=== PATIENT | female | born 1995 | race Caucasian/White ===

== ENCOUNTER 2018-08-14 15:52 | Outpatient (CLI) | payer MEDICAID ==
[~2018-08-14] VITALS: Ht 162.6 cm; Wt 65.1 kg
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
[2018-08-14 15:57] VITALS: BP 135/74
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
[2018-08-14] MEDS ORDERED: PREN-37 PO (16:32)
--- NOTE | 2018-08-14 20:00 | NUR ---
CALL TO DR OCHOA WITH UPDATE ON PT CONDITION GIVEN. ORDER RECEIVED THAT CONDITION IS STABLE FOR DISCHARGE HOME.
[2018-08-14 20:10] VITALS: BP 124/85
--- NOTE | 2018-08-14 20:10 | NUR ---
PT D/C TO HOME IN STABLE CONDITION. ACCOMPANIED BY S/O AND PARENTS.
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
== END 2018-08-14 20:10 | disposition home or self-care (01) ==
LOC: WSo 15:52 → LDRP 15:52 → WSo 20:10
PROVIDERS: ATTEND Obstetrics & Gynecology
DX: Z04.1 Encounter for examination and observation following transport accident (principal); Z3A.32 32 weeks gestation of pregnancy
CPT/HCPCS: 99213

== ENCOUNTER → 2018-09-17 | Outpatient (CLI) | payer MEDICAID ==
[~2018-09-17] MED LIST: AMOX500C2 PO; DOCU-143 PO; IBUP-1780 PO; OXYC1TAB87 PO; PREN-37 PO
== END ==
LOC: LABNPT 11:45
PROVIDERS: ATTEND Obstetrics & Gynecology
DX: O14.03 Mild to moderate pre-eclampsia, third trimester (principal)
CPT/HCPCS: 82570; 84156

== ENCOUNTER → 2018-09-18 | Outpatient (CLI) | payer MEDICAID | LOC: LABNPT 09:01 | PROVIDERS: ATTEND Obstetrics & Gynecology | DX: O28.8 Other abnormal findings on antenatal screening of mother (principal) | CPT/HCPCS: 82570; 84156 ==

== ENCOUNTER 2018-09-19 16:18 | Emergency (ER) | payer MEDICAID ==
[~2018-09-19] VITALS: Ht 162.6 cm; Wt 69.9 kg
[~2018-09-19 16:18] MED LIST changes: -AMOX500C2 PO; -DOCU-143 PO; -IBUP-1780 PO; -OXYC1TAB87 PO
[2018-09-19] MEDS ORDERED: LIDOCAINE 1% INJ 20 ML 20 ML VIAL ONE (16:33)
--- NOTE | 2018-09-19 16:35 | ED EENT ---
History of Present Illness General Chief Complaint: Dental Problems/Pain Stated Complaint: R SIDE DENTAL PAIN/37 WKS PREG Source: patient Exam Limitations: no limitations History of Present Illness Date Seen by Provider: Sep 19, 2018 Time Seen by Provider: 16:33 Initial Comments To ER with right lower dental pain for about 3 days. She previously had a filling in the right lower molar, the filling fell out but never bothered her since she ignored it. The pain began 3 days ago. She is 37 weeks . She states that she's been following with Dr. De León daily for "the start of preeclampsia". She is noted to be hypertensive in ER at 154/90 but has no symptoms other than the right-sided dental pain. Timing/Duration: abrupt Severity: moderate Location: dental Associated Symptoms: facial pain/swelling (pain but no swelling) Allergies and Home Medications Allergies Coded Allergies: No Known Drug Allergies (Unverified , 08/14/18) Home Medications Amoxicillin 500 Mg Capsule, 500 MG PO TID Prescribed by: JANNY PIERRE on 09/19/18 1643 Vit/Iron Fumarate/FA 1 Each Tablet, 1 EACH PO DAILY, (Reported) Patient Home Medication List Home Medication List Reviewed: Yes Review of Systems Review of Systems Constitutional: see HPI Eyes: No Symptoms Reported Ears: No Symptoms Reported Nose: no symptoms reported Mouth: see HPI Throat: no symptoms reported Respiratory: no symptoms reported Cardiovascular: no symptoms reported Musculoskeletal: no symptoms reported Past Obsigqi-Fevrdi-Gsommy Hx Patient Social History Recent Foreign Travel: No Contact w/Someone Who Travel: No Immunizations Up To Date Date of Influenza Vaccine: May 13, 2018 Physical Exam Vital Signs Vital Signs - First Documented 09/19/18 16:25 Pulse 94 Resp 18 B/P (MAP) 154/90 (111) Pulse Ox 100 O2 Delivery Room Air Height, Weight, BMI Height: 5'4.00" Weight: 143lbs. 8.0oz. 65.116324lt; 24.6 BMI Method: General Appearance: WD/WN, no apparent distress Eyes: bilateral eye normal inspection, bilateral eye PERRL, bilateral eye EOMI Ears: bilateral ear auricle normal, bilateral ear canal normal, bilateral ear TM normal Mouth/Throat: other (. #32 is fractured, covered with dental wax. No fluctuant abscess to be drained. She would like to have a inferior alveolar nerve block done for the sake of pain control. I'll also prescribe amoxicillin.) Neck: non-tender, full range of motion Respiratory: no respiratory distress, no accessory muscle use Neurologic/Psychiatric: alert, normal mood/affect, oriented x 3 Skin: normal color, warm/dry Procedures/Interventions Progress I did a right inferior alveolar nerve block using 1% lidocaine a total of 1.5 mL (15 mg) on the right. This is lidocaine withOUT epinephrine. Progress/Results/Core Measures Results/Orders My Orders Orders - JANNY PIERRE APRN Lidocaine 1% Inj 20 Ml (Xylocaine 1% Inj (09/19/18 16:33) Vital Signs/I&O 09/19/18 16:25 Pulse 94 Resp 18 B/P (MAP) 154/90 (111) Pulse Ox 100 O2 Delivery Room Air Departure Communication (Admissions) 8700-discussed with Dr. De León, we will send the patient on up to women's services. Impression Primary Impression: Pain, dental Additional Impression: Hypertension affecting in third trimester Disposition: 01 HOME, SELF-CARE Condition: Stable Departure-Patient Inst. Decision time for Depature: 16:35 Referrals: CONOR VEGA MD (PCP/Family) Primary Care Physician Patient Instructions: Dental Pain (DC) Add. Discharge Instructions: Go directly from here up to women's services. All discharge instructions reviewed with patient and/or family. Voiced understanding. Scripts Amoxicillin (Amoxicillin) 500 Mg Capsule 500 MG PO TID, #21 CAP Prov: JANNY PIERRE APRN 09/19/18 Images Mouth/Nose 1 - Caries, Fracture Tooth JANNY PIERRE APRN Sep 19, 2018 16:35
[2018-09-19] MEDS ORDERED: AMOX500C2 PO (16:43)
[2018-09-19 16:56] VITALS: BP 154/90
[2018-09-20] MEDS ORDERED: DOCU-143 PO (13:42)
[2018-09-20] MEDS ORDERED: OXYC1TAB87 PO (13:42)
[2018-09-20] MEDS ORDERED: IBUP-1780 PO (13:42)
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
--- OUTSIDE RECORDS SUMMARY | 2018-09-20 13:51 | XMS REPORT ---
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
== END 2018-09-19 16:56 | disposition home or self-care (01) ==
LOC: EDUNIT# 16:18 → ER 16:19
DX: O26.893 Other specified pregnancy related conditions, third trimester (principal); K08.89 Other specified disorders of teeth and supporting structures; O16.9 Unspecified maternal hypertension, unspecified trimester; Z3A.37 37 weeks gestation of pregnancy
CPT/HCPCS: 99284

== ENCOUNTER 2018-09-19 16:56 | Inpatient (IN) | payer MEDICAID ==
[2018-09-19] VITALS (15 sets, daily range): BP systolic 109–155; BP diastolic 58–89
[~2018-09-19] VITALS: Ht 162.6 cm; Wt 69.9 kg
[~2018-09-19 16:56] MED LIST changes: +AMOX500C2 PO
--- NOTE | 2018-09-19 17:05 | NUR ---
AZUL JOHNSON presented to unit via amb from ED, accompanied by s.o.and parents , with c/o elevated bp in the ED AT 37 WKS 1 DAY GESTATION. AZUL JOHNSON weighed, gowned, voided, and to bed. EFHM and TOCO applied, VS taken. AZUL JOHNSON oriented to bed controls, call light, TV, heat, and A/C controls.
[2018-09-19 17:51] LABS: BASOPHILS % (AUTO) 0 % (0-10); EOSINOPHILS # (AUTO) 0.1 10^3/uL (0.0-0.3); EOSINOPHILS % (AUTO) 0 % (0-10); HEMATOCRIT 33 % (35-52); HEMOGLOBIN 11.7 G/DL (11.5-16.0); LYMPHOCYTES # (AUTO) 1.6 X 10^3 (1.0-4.0); LYMPHOCYTES % (AUTO) 11 % (12-44); MEAN CORPUSCULAR HEMOGLOBIN 32 PG (25-34); MEAN CORPUSCULAR HGB CONC 36 G/DL (32-36); MEAN CORPUSCULAR VOLUME 91 FL (80-99); MEAN PLATELET VOLUME 10.5 FL (7.4-10.4); MONOCYTES # (AUTO) 1.1 X 10^3 (0.0-1.0); MONOCYTES % (AUTO) 7 % (0-12); NEUTROPHILS # (AUTO) 12.4 X 10^3 (1.8-7.8); NEUTROPHILS % (AUTO) 82 % (42-75); PLATELET COUNT 208 10^3/uL (130-400); RED CELL DISTRIBUTION WIDTH 12.9 % (10.0-14.5); WHITE BLOOD COUNT 15.2 10^3/uL (4.3-11.0)
[2018-09-19 18:15] LABS: ALANINE AMINOTRANSFERASE 20 U/L (0-55); ALBUMIN 3.3 GM/DL (3.2-4.5); ALKALINE PHOSPHATASE 225 U/L (40-136); BILIRUBIN,TOTAL 0.2 MG/DL (0.1-1.0); BUN/CREATININE RATIO 17; CALCIUM 9.8 MG/DL (8.5-10.1); CARBON DIOXIDE 20 MMOL/L (21-32); CHLORIDE 106 MMOL/L (98-107); GFR ESTIMATED > 60; GLUCOSE 95 MG/DL (70-105); POTASSIUM 3.9 MMOL/L (3.6-5.0); SODIUM 136 MMOL/L (135-145); TOTAL PROTEIN 6.1 GM/DL (6.4-8.2); URIC ACID 5.5 MG/DL (2.6-7.2)
[2018-09-19 18:30] LABS: NEUTROPHILS % (MANUAL) 82 %
--- NOTE | 2018-09-19 18:30 | NUR ---
DR. OCHOA NOTIFIED OF LAB RESULTS, CTX PATTERN, REACTIVE NST, AND CERVICAL EXAN. ORDER TO CHANGE STATUS TO OBSERVATION AND WILL INDUCE PT IN THE A.M. PLAN OF CARE REVIEWED WITH PT AND S.O. WITH STATED UNDERSTANDING.
[2018-09-19 18:31] LABS: BAND NEUTROPHILS 1 %; EOSINOPHILS % (MANUAL) 1 %; LYMPHOCYTES % (MANUAL) 12 %; MONOCYTES % (MANUAL) 4 %; RBC MORPH NORMAL
--- NOTE | 2018-09-19 18:40 | NUR ---
EFM OFF. TRANSFERRED AMB TO LABOR ROOM 320 ACC BY S.O.
[2018-09-19] MEDS ORDERED: WATER (STERILE) FOR INJECTION 10 ML ONE (19:19)
[2018-09-19] MEDS ORDERED: D5 LR IV SOLUTION 1,000 ML IV ONE (19:20)
[2018-09-19] MEDS ORDERED: ceFAZolin INJECTION 1,000 MG ONE (19:20)
[2018-09-19] MEDS ORDERED: BUTORPHANOL INJ 2 MG/ML (STADOL) VIAL IV ONE (19:45)
[2018-09-19] MEDS ORDERED: oxyCODONE/APAP 5/325MG (PERCOCET 5) TABLET ONE (19:47)
[2018-09-19] MEDS: D5 LR IV SOLUTION 1,000 ML IV SCH (19:51)
[2018-09-19] MEDS: ceFAZolin INJECTION 1,000 MG VIAL IV SCH (19:51)
[2018-09-19] MEDS: oxyCODONE/APAP 5/325MG (PERCOCET 5) TABLET PO PRN ×2 (19:52→21:33)
[2018-09-19] MEDS ORDERED: D5 LR IV SOLUTION 1,000 ML IV SCH (20:32)
--- NOTE | 2018-09-19 20:32 | History & Physical ---
History and Physical Date Seen by Provider: Sep 19, 2018 Time Seen by Provider: 20:25 This patient is a 22-year-old G1 white female with an EDC of 2018 who presented apparently to the emergency department this evening with complaint of toothache. Her blood pressure was elevated. I have been following her in clinic for what appeared to be developing preeclampsia and she does appear to have lost threshold now. Allergies are kindly consult with me on my patient and allow me to admit her to take care of her. She does have elevated white blood cell count likely due to an infected tooth. She also and elevated LDH and an elevated urine protein creatinine ratio. GBS culture has been obtained in my clinic last week and that result is not available. Patient has been started empirically on Ancef for her dental infection and that would cover GBS and in the event. Patient denies rupture membranes or bleeding. She's had no other problems with this . Allergies are none Medications are vitamins Medical social and surgical histories are per the antepartum record HEENT exam is normal Neck is supple no lymphadenopathy no thyromegaly Abdomen is gravid soft nontender nondistended Extremities show no clubbing cyanosis. There is no Homans sign. Pelvic exam is pending. Nurse did report a cervix that was 2 cm dilated 60 percent effaced and 0 station vertex presentation and membranes intact monitor shows normal heart rate pattern with no D cells. There are occasional contractions and notable uterine irritability Laboratory Tests Test 09/19/18 17:15 09/19/18 17:44 Range/Units Urine Protein 16 H 6-12 MG/DL Urine Creatinine 70 30-125 MG/DL Urine Protein/Creatinine Ratio 0.23 White Blood Count 15.2 H 4.3-11.0 10^3/uL Red Blood Count 3.64 L 4.35-5.85 10^6/uL Hemoglobin 11.7 11.5-16.0 G/DL Hematocrit 33 L 35-52 % Mean Corpuscular Volume 91 80-99 FL Mean Corpuscular Hemoglobin 32 25-34 PG Mean Corpuscular Hemoglobin Concent 36 32-36 G/DL Red Cell Distribution Width 12.9 10.0-14.5 % Platelet Count 208 130-400 10^3/uL Mean Platelet Volume 10.5 H 7.4-10.4 FL Neutrophils (%) (Auto) 82 H 42-75 % Lymphocytes (%) (Auto) 11 L 12-44 % Monocytes (%) (Auto) 7 0-12 % Eosinophils (%) (Auto) 0 0-10 % Basophils (%) (Auto) 0 0-10 % Neutrophils # (Auto) 12.4 H 1.8-7.8 X 10^3 Lymphocytes # (Auto) 1.6 1.0-4.0 X 10^3 Monocytes # (Auto) 1.1 H 0.0-1.0 X 10^3 Eosinophils # (Auto) 0.1 0.0-0.3 10^3/uL Basophils # (Auto) 0.0 0.0-0.1 10^3/uL Neutrophils % (Manual) 82 % Lymphocytes % (Manual) 12 % Monocytes % (Manual) 4 % Eosinophils % (Manual) 1 % Band Neutrophils 1 % Blood Morphology Comment NORMAL Sodium Level 136 135-145 MMOL/L Potassium Level 3.9 3.6-5.0 MMOL/L Chloride Level 106 98-107 MMOL/L Carbon Dioxide Level 20 L 21-32 MMOL/L Anion Gap 10 5-14 MMOL/L Blood Urea Nitrogen 10 7-18 MG/DL Creatinine 0.60 0.60-1.30 MG/DL Estimat Glomerular Filtration Rate > 60 BUN/Creatinine Ratio 17 Glucose Level 95 70-105 MG/DL Uric Acid 5.5 2.6-7.2 MG/DL Calcium Level 9.8 8.5-10.1 MG/DL Corrected Calcium 10.4 H 8.5-10.1 MG/DL Total Bilirubin 0.2 0.1-1.0 MG/DL Aspartate Amino Transf (AST/SGOT) 27 5-34 U/L Alanine Aminotransferase (ALT/SGPT) 20 0-55 U/L Alkaline Phosphatase 225 H 40-136 U/L Lactate Dehydrogenase 230 H 125-220 U/L Total Protein 6.1 L 6.4-8.2 GM/DL Albumin 3.3 3.2-4.5 GM/DL White blood cell count is elevated with a left shift. LDH is elevated. Patient 's platelet count is normal. Liver enzymes are normal. Assessment and plan term at 37 weeks gestation admitted with early preeclampsia and with a dental infection / abscess and with leukocytosis. Patient has been started empirically now on Ancef and we will observe through the night and proceed with Pitocin induction in the light of day tomorrow. I anticipate a vaginal delivery but would be prepared if needed. Preeclampsia and dental abscess Allergies and Home Medications Allergies Coded Allergies: No Known Drug Allergies (Unverified , 08/14/18) Home Medications Vit/Iron Fumarate/FA 1 Each Tablet, 1 EACH PO DAILY, (Reported) Patient Home Medication List Home Medication List Reviewed: Yes ONEAL OCHOA MD Sep 19, 2018 20:32
[2018-09-20] VITALS (62 sets, daily range): BP systolic 109–167; BP diastolic 56–96
[2018-09-20] MEDS: oxyCODONE/APAP 5/325MG (PERCOCET 5) TABLET PO PRN ×3 (00:05→08:05)
[2018-09-20] MEDS ORDERED: WATER (STERILE) FOR INJECTION 10 ML ONE ×4 (01:54→19:31)
[2018-09-20] MEDS: ceFAZolin INJECTION 1,000 MG VIAL IV SCH ×4 (02:11→19:50)
[2018-09-20] MEDS: D5 LR IV SOLUTION 1,000 ML IV SCH ×3 (02:26→18:04)
[2018-09-20] MEDS: OXYTOCIN/NORMAL SALINE 500 ML IV SCH (06:05)
[2018-09-20 07:03] LABS: BASOPHILS % (AUTO) 0 % (0-10); EOSINOPHILS # (AUTO) 0.1 10^3/uL (0.0-0.3); EOSINOPHILS % (AUTO) 1 % (0-10); HEMATOCRIT 31 % (35-52); HEMOGLOBIN 10.7 G/DL (11.5-16.0); LYMPHOCYTES % (AUTO) 15 % (12-44); MEAN CORPUSCULAR HEMOGLOBIN 32 PG (25-34); MEAN CORPUSCULAR HGB CONC 34 G/DL (32-36); MEAN CORPUSCULAR VOLUME 93 FL (80-99); MEAN PLATELET VOLUME 10.8 FL (7.4-10.4); MONOCYTES # (AUTO) 1.2 X 10^3 (0.0-1.0); MONOCYTES % (AUTO) 10 % (0-12); NEUTROPHILS # (AUTO) 9.6 X 10^3 (1.8-7.8); NEUTROPHILS % (AUTO) 74 % (42-75); PLATELET COUNT 166 10^3/uL (130-400); WHITE BLOOD COUNT 12.9 10^3/uL (4.3-11.0)
[2018-09-20 07:21] LABS: ALANINE AMINOTRANSFERASE 17 U/L (0-55); ALBUMIN 2.9 GM/DL (3.2-4.5); ALKALINE PHOSPHATASE 199 U/L (40-136); BILIRUBIN,TOTAL 0.3 MG/DL (0.1-1.0); BUN/CREATININE RATIO 13; CALCIUM 8.9 MG/DL (8.5-10.1); CARBON DIOXIDE 23 MMOL/L (21-32); CHLORIDE 107 MMOL/L (98-107); CREATININE SERUM 0.63 MG/DL (0.60-1.30); GFR ESTIMATED > 60; GLUCOSE 87 MG/DL (70-105); POTASSIUM 3.9 MMOL/L (3.6-5.0); SODIUM 137 MMOL/L (135-145); TOTAL PROTEIN 5.3 GM/DL (6.4-8.2)
--- NOTE | 2018-09-20 09:21 | Progress Note-Standard ---
Standard Progress Note Progress Notes/Assess & Plan Date Seen by a Provider: Sep 20, 2018 Time Seen by a Provider: 09:17 Progress/Assessment & Plan This patient is without complaint. Her dental pain is controlled with Percocet. She is feeling occasional contractions. Pitocin is now on 16. She denies rupture membranes or bleeding. Her blood pressures have been labile occasionally touch in the 160s over 90s. heart rate looks good on the monitor. She continues on her Ancef. Vital Signs Date Time Temp Pulse Resp B/P (MAP) Pulse Ox O2 Delivery O2 Flow Rate FiO2 09/20/18 08:45 16 131/77 (95) Room Air 09/20/18 08:30 75 16 142/90 (107) Room Air 09/20/18 08:15 63 16 139/90 (106) Room Air 09/20/18 08:00 74 18 136/87 (103) Room Air 09/20/18 07:45 74 18 136/88 (104) Room Air 09/20/18 07:30 73 18 161/93 (115) Room Air 09/20/18 07:15 97.9 58 18 126/65 (85) Room Air 09/20/18 06:50 98.8 65 18 109/56 (73) Room Air 09/20/18 06:35 61 18 118/63 (81) Room Air 09/20/18 05:55 68 18 128/62 (84) Room Air 09/20/18 05:25 78 18 135/64 (87) Room Air 09/20/18 04:55 77 18 152/89 (110) Room Air 09/20/18 04:25 66 18 139/67 (91) Room Air 09/20/18 03:55 78 18 142/89 (106) Room Air 09/20/18 03:25 60 18 118/67 (84) Room Air 09/20/18 02:55 67 18 134/77 (96) Room Air 09/20/18 02:25 98.8 88 18 133/80 (97) Room Air 09/20/18 01:55 74 18 140/69 (92) Room Air 09/20/18 01:25 66 18 129/60 (83) Room Air 09/20/18 00:55 64 18 141/77 (98) Room Air 09/20/18 00:25 63 18 132/78 (96) Room Air 09/19/18 23:55 97.0 62 18 109/60 (76) Room Air 09/19/18 23:25 66 18 128/73 (91) Room Air 09/19/18 22:55 69 18 125/62 (83) Room Air 09/19/18 22:25 81 18 123/58 (79) Room Air 09/19/18 21:55 86 18 143/87 (105) Room Air 09/19/18 21:25 82 18 138/84 (102) Room Air 09/19/18 20:55 88 18 132/75 (94) Room Air 09/19/18 20:25 75 18 155/89 (111) Room Air 09/19/18 19:55 81 18 139/86 (103) Room Air 09/19/18 19:15 75 18 145/83 (103) Room Air 09/19/18 18:17 75 18 138/78 (98) Room Air 09/19/18 18:02 69 18 136/84 (101) Room Air 09/19/18 17:47 86 18 139/87 (104) Room Air 09/19/18 17:32 81 18 136/87 (103) Room Air 09/19/18 17:17 98.5 75 18 135/88 (104) 98 Room Air Blood pressures noted Laboratory Tests Test 09/19/18 17:15 09/19/18 17:44 09/20/18 06:55 Range/Units Urine Protein 16 H 6-12 MG/DL Urine Creatinine 70 30-125 MG/DL Urine Protein/Creatinine Ratio 0.23 White Blood Count 15.2 H 12.9 H 4.3-11.0 10^3/uL Red Blood Count 3.64 L 3.36 L 4.35-5.85 10^6/uL Hemoglobin 11.7 10.7 L 11.5-16.0 G/DL Hematocrit 33 L 31 L 35-52 % Mean Corpuscular Volume 91 93 80-99 FL Mean Corpuscular Hemoglobin 32 32 25-34 PG Mean Corpuscular Hemoglobin Concent 36 34 32-36 G/DL Red Cell Distribution Width 12.9 13.0 10.0-14.5 % Platelet Count 208 166 130-400 10^3/uL Mean Platelet Volume 10.5 H 10.8 H 7.4-10.4 FL Neutrophils (%) (Auto) 82 H 74 42-75 % Lymphocytes (%) (Auto) 11 L 15 12-44 % Monocytes (%) (Auto) 7 10 0-12 % Eosinophils (%) (Auto) 0 1 0-10 % Basophils (%) (Auto) 0 0 0-10 % Neutrophils # (Auto) 12.4 H 9.6 H 1.8-7.8 X 10^3 Lymphocytes # (Auto) 1.6 2.0 1.0-4.0 X 10^3 Monocytes # (Auto) 1.1 H 1.2 H 0.0-1.0 X 10^3 Eosinophils # (Auto) 0.1 0.1 0.0-0.3 10^3/uL Basophils # (Auto) 0.0 0.0 0.0-0.1 10^3/uL Neutrophils % (Manual) 82 % Lymphocytes % (Manual) 12 % Monocytes % (Manual) 4 % Eosinophils % (Manual) 1 % Band Neutrophils 1 % Blood Morphology Comment NORMAL Sodium Level 136 137 135-145 MMOL/L Potassium Level 3.9 3.9 3.6-5.0 MMOL/L Chloride Level 106 107 98-107 MMOL/L Carbon Dioxide Level 20 L 23 21-32 MMOL/L Anion Gap 10 7 5-14 MMOL/L Blood Urea Nitrogen 10 8 7-18 MG/DL Creatinine 0.60 0.63 0.60-1.30 MG/DL Estimat Glomerular Filtration Rate > 60 > 60 BUN/Creatinine Ratio 17 13 Glucose Level 95 87 70-105 MG/DL Uric Acid 5.5 2.6-7.2 MG/DL Calcium Level 9.8 8.9 8.5-10.1 MG/DL Corrected Calcium 10.4 H 9.8 8.5-10.1 MG/DL Total Bilirubin 0.2 0.3 0.1-1.0 MG/DL Aspartate Amino Transf (AST/SGOT) 27 23 5-34 U/L Alanine Aminotransferase (ALT/SGPT) 20 17 0-55 U/L Alkaline Phosphatase 225 H 199 H 40-136 U/L Lactate Dehydrogenase 230 H 252 H 125-220 U/L Total Protein 6.1 L 5.3 L 6.4-8.2 GM/DL Albumin 3.3 2.9 L 3.2-4.5 GM/DL Patient's hemoglobin is stable her platelet count has dropped notably. LDH is risen just a bit. Liver enzymes are normal. White blood cell count did come down some. The abdomen is benign. Extremities show no clubbing or cyanosis. Pelvic exam shows cervix now 5 cm dilated 60-70 percent effaced -1 station vertex presentation with intact membranes. Amniotomy is performed releasing clear fluid. Assessment and plan hospital day 237 and now 3/7 weeks gestation with preeclampsia that appears to be developing help syndrome. We'll plan to start magnesium if her blood pressures remained persistently elevated. We will effect more prompt delivery if her blood pressures reached the level of 160/110 persistently. If she fails to make adequate progress in labor however proceeding with delivery due to terminate the . We will plan to repeat the lab work this afternoon. ONEAL OCHOA MD Sep 20, 2018 09:21
[2018-09-20] MEDS ORDERED: BUTORPHANOL INJ 2 MG/ML (STADOL) VIAL ONE (10:57)
[2018-09-20] MEDS ORDERED: BUTORPHANOL INJ 2 MG/ML (STADOL) VIAL IV NR (11:00)
[2018-09-20] MEDS ORDERED: SUFENTA 0.6MCG/ML BUPIVA 0.125 100 ML ONE (11:33)
[2018-09-20] MEDS ORDERED: fentaNYL INJECTION 100 MCG/2 ML AMP ONE (11:54)
[2018-09-20] MEDS ORDERED: BUPIVACAINE 0.25% 30 ML (SENSORCAINE) VIAL ONE (11:54)
[2018-09-20] MEDS ORDERED: LACTATED RINGERS 1,000 ML IV ONE (12:20)
[2018-09-20] MEDS ORDERED: CATHETER FLUSH 10 ML SYR IV PRN (12:30)
[2018-09-20] MEDS ORDERED: EPIDURAL (SUFENTA 0.6MCG/ML BUPIVA 0.125%) 100 ML BAG EPI SCH (12:30)
[2018-09-20] MEDS ORDERED: NALOXONE 0.4 MG/ML 1 ML (NARCAN) VIAL IV PRN (12:30)
[2018-09-20] MEDS ORDERED: LIDOCAINE/EPI 2% 1:200,00 (XYLOCAINE) 10 ML VIAL ONE ×2 (13:23→13:36)
[2018-09-20] MEDS ORDERED: OXYTOCIN/NORMAL SALINE 500 ML IV SCH (13:35)
[2018-09-20] MEDS ORDERED: DOCU-143 PO (13:42)
[2018-09-20] MEDS ORDERED: IBUP-1780 PO (13:42)
[2018-09-20] MEDS ORDERED: OXYC1TAB87 PO (13:42)
--- NOTE | 2018-09-20 13:44 | Discharge Instructions ---
Discharge Instructions Discharge Medications New, Converted or Re-Newed RX: RX on Chart Patient Instructions Patient Instructions: As directed Return to The Hospital For: As directed Activity & Diet Discharge Diet: No Restrictions Activity as Tolerated: No Orders-Post D/C & Referrals Follow Up Appt: Call to make follow up appt. for patient in 4 weeks. Follow-up with her dentist when necessary Activity Per routine post vaginal delivery instructions. Please call in RX to patient pharmacy. Continue taking your amoxicillin as prescribed Diet as tolerated Patient may shower or tub bathe as desired. ONEAL OCHOA MD Sep 20, 2018 13:44
[2018-09-20] MEDS ORDERED: MEASLES,MUMPS,RUBELLA 1 EA INJ SC ONE (13:45)
[2018-09-20] MEDS ORDERED: TETANUS,DIPTH,PERTUSS P/F (BOOSTRIX) 0.5 ML VIAL IM ONE (13:45)
[2018-09-20] MEDS ORDERED: BENZOCAINE/MENTHOL (DERMOPLAST) 56 ML CAN TP PRN (13:45)
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
--- NOTE | 2018-09-20 14:21 | NUR ---
Spontaneous vaginal delivery of placenta with cord. fundal massage by dr rivero. IV pitocin increased to 60ml/hr 1423 local to perineum for repair of bilat. periurethral tears 1425 ffu/2 with mod rubra noted 2small clots expressed. pericare and pad under pt. plan of care reviewed with pt. pt assisted out of lithotomy and to sf position. 1436 epidural catheter dc'd with tip intact, bandaid to site 1440 +emesis approx 250ml liquid. 1451 zofran given 1500 ffu/2 with mod rubra noted, no clots expressed. vss 1515 ffu/2 with lt-mod rubra noted, no clots expressed. vss 1530 ffu/2 with mod rubra noted, no clots expressed. vss 1545 ffu/2 with mod rubra noted, no clots expressed vss. family at bedside. fresh ice water to bedside table.
[2018-09-20] MEDS ORDERED: ONDANSETRON 4 MG/2 ML (SDV) Z0FRAN ONE (14:46)
[2018-09-20 14:55] LABS: BASOPHILS % (AUTO) 0 % (0-10); EOSINOPHILS # (AUTO) 0.1 10^3/uL (0.0-0.3); EOSINOPHILS % (AUTO) 0 % (0-10); HEMATOCRIT 39 % (35-52); LYMPHOCYTES # (AUTO) 2.6 X 10^3 (1.0-4.0); LYMPHOCYTES % (AUTO) 16 % (12-44); MEAN CORPUSCULAR HEMOGLOBIN 31 PG (25-34); MEAN CORPUSCULAR HGB CONC 34 G/DL (32-36); MEAN CORPUSCULAR VOLUME 93 FL (80-99); MEAN PLATELET VOLUME 10.6 FL (7.4-10.4); MONOCYTES # (AUTO) 1.3 X 10^3 (0.0-1.0); MONOCYTES % (AUTO) 8 % (0-12); NEUTROPHILS # (AUTO) 11.8 X 10^3 (1.8-7.8); NEUTROPHILS % (AUTO) 75 % (42-75); PLATELET COUNT 213 10^3/uL (130-400); RED CELL DISTRIBUTION WIDTH 12.7 % (10.0-14.5); WHITE BLOOD COUNT 15.8 10^3/uL (4.3-11.0)
[2018-09-20] MEDS: MAGNESIUM SULFATE DRIP 500 ML IV SCH (14:59)
[2018-09-20 15:07] LABS: HEMOGLOBIN 13.2 G/DL (11.5-16.0)
[2018-09-20 15:18] LABS: ALANINE AMINOTRANSFERASE 21 U/L (0-55); ALBUMIN 3.6 GM/DL (3.2-4.5); ALKALINE PHOSPHATASE 251 U/L (40-136); BILIRUBIN,TOTAL 0.3 MG/DL (0.1-1.0); BUN/CREATININE RATIO 9; CALCIUM 9.9 MG/DL (8.5-10.1); CARBON DIOXIDE 20 MMOL/L (21-32); CHLORIDE 107 MMOL/L (98-107); CREATININE SERUM 0.74 MG/DL (0.60-1.30); GFR ESTIMATED > 60; GLUCOSE 91 MG/DL (70-105); POTASSIUM 3.4 MMOL/L (3.6-5.0); SODIUM 143 MMOL/L (135-145); TOTAL PROTEIN 6.9 GM/DL (6.4-8.2)
[2018-09-20] MEDS: KETOROLAC 30 MG/ML VIAL IV SCH ×2 (16:29→22:14)
--- NOTE | 2018-09-20 17:00 | NUR ---
vss. ffu/2 with mod rubra noted.
--- NOTE | 2018-09-20 17:15 | NUR ---
pericare, pad changed and underwear on.
--- NOTE | 2018-09-20 17:30 | NUR ---
Pt transferred via wheelchair to room 309 and then to bed. Oriented to room, call light and surroundings.
[2018-09-20] MEDS: DOCUSATE SODIUM 100 MG (COLACE) CAP PO SCH (19:50)
--- NOTE | 2018-09-20 20:16 | NUR ---
pt resting in bed. assessment completed. family at bedside. pt denies any needs or concerns at this time. scd's placed on bilateral calfs. will continue to monitor.
--- NOTE | 2018-09-20 21:45 | NUR ---
pt assisted to bathroom. pericare completed. pt assisted back to bed. pt denies any needs at this time. will continue to monitor.
[2018-09-20] MEDS ORDERED: CALCIUM GLUC. 10% 4.65 MEQ/10 ML VIAL ONE (22:02)
[2018-09-21] VITALS (11 sets, daily range): BP systolic 106–148; BP diastolic 53–87
[2018-09-21] MEDS: MAGNESIUM SULFATE DRIP 500 ML IV SCH (00:02)
--- NOTE | 2018-09-21 00:38 | OPERATIVE REPORT ---
DATE OF SERVICE: 09/20/2018 DELIVERY NOTE The patient delivered a 37-week viable female with Apgars of 8 and 9 at 1 and 5 minutes respectively, weight of 6 pounds, blood gas is pending and a time was 14:15. The infant was delivered over an intact perineum under epidural analgesia augmented with local in the perineum. The patient did experience bilateral periurethral lacerations. The infant was bulb suctioned on delivery of the head and on completion of delivery. Umbilical cord doubly clamped, the father cut the cord, the baby was passed to mom's abdomen. Placenta delivered spontaneously Sharma. It was normal with a 3-vessel cord. Cord bloods were obtained. Cervix rectum, vagina were examined and found intact, except for the bilateral periurethral lacerations, which was repaired under local analgesia with a single suture of 3-0 Vicryl Rapide in the usual manner. Good hemostasis was achieved. Good reapproximation was achieved. Again, the perineum was intact. Blood loss for the delivery and the repair was around 200 mL. The patient tolerated the procedure well and recovered in the LDR. The baby remained with the mom. Sponge and needle counts were correct. Job ID: [id number] DocumentID: [id number] Dictated Date: 09/20/2018 14:36:44 Chipper Machine Operator Date: 09/21/2018 00:37:26 Dictated By: ONEAL OCHOA MD
[2018-09-21] MEDS ORDERED: WATER (STERILE) FOR INJECTION 10 ML ONE ×2 (01:35→07:56)
[2018-09-21] MEDS: ceFAZolin INJECTION 1,000 MG VIAL IV SCH ×3 (01:49→12:02)
[2018-09-21] MEDS: oxyCODONE/APAP 5/325MG (PERCOCET 5) TABLET PO PRN (02:47)
[2018-09-21] MEDS: KETOROLAC 30 MG/ML VIAL IV SCH ×2 (05:03→11:59)
--- NOTE | 2018-09-21 06:15 | NUR ---
jeff hutchinson'ale, pt ambulated to bathroom. pericare completed. pad changed. pt assisted back to bed.
[2018-09-21 06:25] LABS: BASOPHILS % (AUTO) 0 % (0-10); EOSINOPHILS # (AUTO) 0.2 10^3/uL (0.0-0.3); EOSINOPHILS % (AUTO) 1 % (0-10); HEMATOCRIT 31 % (35-52); HEMOGLOBIN 10.3 G/DL (11.5-16.0); LYMPHOCYTES # (AUTO) 2.6 X 10^3 (1.0-4.0); LYMPHOCYTES % (AUTO) 20 % (12-44); MEAN CORPUSCULAR HEMOGLOBIN 31 PG (25-34); MEAN CORPUSCULAR HGB CONC 34 G/DL (32-36); MEAN CORPUSCULAR VOLUME 94 FL (80-99); MEAN PLATELET VOLUME 10.7 FL (7.4-10.4); MONOCYTES # (AUTO) 1.2 X 10^3 (0.0-1.0); MONOCYTES % (AUTO) 9 % (0-12); NEUTROPHILS # (AUTO) 9.1 X 10^3 (1.8-7.8); NEUTROPHILS % (AUTO) 70 % (42-75); PLATELET COUNT 192 10^3/uL (130-400); RED CELL DISTRIBUTION WIDTH 12.7 % (10.0-14.5)
[2018-09-21 06:47] LABS: ALANINE AMINOTRANSFERASE 13 U/L (0-55); ALBUMIN 2.6 GM/DL (3.2-4.5); ALKALINE PHOSPHATASE 185 U/L (40-136); BILIRUBIN,TOTAL 0.2 MG/DL (0.1-1.0); BUN/CREATININE RATIO 8; CALCIUM 7.3 MG/DL (8.5-10.1); CARBON DIOXIDE 23 MMOL/L (21-32); CHLORIDE 107 MMOL/L (98-107); GFR ESTIMATED > 60; GLUCOSE 87 MG/DL (70-105); POTASSIUM 3.7 MMOL/L (3.6-5.0); SODIUM 137 MMOL/L (135-145); TOTAL PROTEIN 4.8 GM/DL (6.4-8.2)
--- NOTE | 2018-09-21 06:50 | NUR ---
called to unit. update given. order to d'c mag received.
[2018-09-21] MEDS: OXYTOCIN/NORMAL SALINE 500 ML IV SCH (07:32)
--- NOTE | 2018-09-21 07:46 | NUR ---
Dr. De León here to see patient.
[2018-09-21] MEDS ORDERED: TETANUS,DIPTH,PERTUSS P/F (BOOSTRIX) 0.5 ML VIAL IM ONE (07:50)
--- NOTE | 2018-09-21 07:54 | Progress Note-Standard ---
Standard Progress Note Progress Notes/Assess & Plan Date Seen by a Provider: Sep 21, 2018 Time Seen by a Provider: 07:51 Progress/Assessment & Plan This patient is without complaint. Her dental pain is controlled with Percocet. She is feeling occasional contractions. Pitocin is now on 16. She denies rupture membranes or bleeding. Her blood pressures have been labile occasionally touch in the 160s over 90s. heart rate looks good on the monitor. She continues on her Ancef. Vital Signs Date Time Temp Pulse Resp B/P (MAP) Pulse Ox O2 Delivery O2 Flow Rate FiO2 09/20/18 08:45 16 131/77 (95) Room Air 09/20/18 08:30 75 16 142/90 (107) Room Air 09/20/18 08:15 63 16 139/90 (106) Room Air 09/20/18 08:00 74 18 136/87 (103) Room Air 09/20/18 07:45 74 18 136/88 (104) Room Air 09/20/18 07:30 73 18 161/93 (115) Room Air 09/20/18 07:15 97.9 58 18 126/65 (85) Room Air 09/20/18 06:50 98.8 65 18 109/56 (73) Room Air 09/20/18 06:35 61 18 118/63 (81) Room Air 09/20/18 05:55 68 18 128/62 (84) Room Air 09/20/18 05:25 78 18 135/64 (87) Room Air 09/20/18 04:55 77 18 152/89 (110) Room Air 09/20/18 04:25 66 18 139/67 (91) Room Air 09/20/18 03:55 78 18 142/89 (106) Room Air 09/20/18 03:25 60 18 118/67 (84) Room Air 09/20/18 02:55 67 18 134/77 (96) Room Air 09/20/18 02:25 98.8 88 18 133/80 (97) Room Air 09/20/18 01:55 74 18 140/69 (92) Room Air 09/20/18 01:25 66 18 129/60 (83) Room Air 09/20/18 00:55 64 18 141/77 (98) Room Air 09/20/18 00:25 63 18 132/78 (96) Room Air 09/19/18 23:55 97.0 62 18 109/60 (76) Room Air 09/19/18 23:25 66 18 128/73 (91) Room Air 09/19/18 22:55 69 18 125/62 (83) Room Air 09/19/18 22:25 81 18 123/58 (79) Room Air 09/19/18 21:55 86 18 143/87 (105) Room Air 09/19/18 21:25 82 18 138/84 (102) Room Air 09/19/18 20:55 88 18 132/75 (94) Room Air 09/19/18 20:25 75 18 155/89 (111) Room Air 09/19/18 19:55 81 18 139/86 (103) Room Air 09/19/18 19:15 75 18 145/83 (103) Room Air 09/19/18 18:17 75 18 138/78 (98) Room Air 09/19/18 18:02 69 18 136/84 (101) Room Air 09/19/18 17:47 86 18 139/87 (104) Room Air 09/19/18 17:32 81 18 136/87 (103) Room Air 09/19/18 17:17 98.5 75 18 135/88 (104) 98 Room Air Blood pressures noted Laboratory Tests Test 09/19/18 17:15 09/19/18 17:44 09/20/18 06:55 Range/Units Urine Protein 16 H 6-12 MG/DL Urine Creatinine 70 30-125 MG/DL Urine Protein/Creatinine Ratio 0.23 White Blood Count 15.2 H 12.9 H 4.3-11.0 10^3/uL Red Blood Count 3.64 L 3.36 L 4.35-5.85 10^6/uL Hemoglobin 11.7 10.7 L 11.5-16.0 G/DL Hematocrit 33 L 31 L 35-52 % Mean Corpuscular Volume 91 93 80-99 FL Mean Corpuscular Hemoglobin 32 32 25-34 PG Mean Corpuscular Hemoglobin Concent 36 34 32-36 G/DL Red Cell Distribution Width 12.9 13.0 10.0-14.5 % Platelet Count 208 166 130-400 10^3/uL Mean Platelet Volume 10.5 H 10.8 H 7.4-10.4 FL Neutrophils (%) (Auto) 82 H 74 42-75 % Lymphocytes (%) (Auto) 11 L 15 12-44 % Monocytes (%) (Auto) 7 10 0-12 % Eosinophils (%) (Auto) 0 1 0-10 % Basophils (%) (Auto) 0 0 0-10 % Neutrophils # (Auto) 12.4 H 9.6 H 1.8-7.8 X 10^3 Lymphocytes # (Auto) 1.6 2.0 1.0-4.0 X 10^3 Monocytes # (Auto) 1.1 H 1.2 H 0.0-1.0 X 10^3 Eosinophils # (Auto) 0.1 0.1 0.0-0.3 10^3/uL Basophils # (Auto) 0.0 0.0 0.0-0.1 10^3/uL Neutrophils % (Manual) 82 % Lymphocytes % (Manual) 12 % Monocytes % (Manual) 4 % Eosinophils % (Manual) 1 % Band Neutrophils 1 % Blood Morphology Comment NORMAL Sodium Level 136 137 135-145 MMOL/L Potassium Level 3.9 3.9 3.6-5.0 MMOL/L Chloride Level 106 107 98-107 MMOL/L Carbon Dioxide Level 20 L 23 21-32 MMOL/L Anion Gap 10 7 5-14 MMOL/L Blood Urea Nitrogen 10 8 7-18 MG/DL Creatinine 0.60 0.63 0.60-1.30 MG/DL Estimat Glomerular Filtration Rate > 60 > 60 BUN/Creatinine Ratio 17 13 Glucose Level 95 87 70-105 MG/DL Uric Acid 5.5 2.6-7.2 MG/DL Calcium Level 9.8 8.9 8.5-10.1 MG/DL Corrected Calcium 10.4 H 9.8 8.5-10.1 MG/DL Total Bilirubin 0.2 0.3 0.1-1.0 MG/DL Aspartate Amino Transf (AST/SGOT) 27 23 5-34 U/L Alanine Aminotransferase (ALT/SGPT) 20 17 0-55 U/L Alkaline Phosphatase 225 H 199 H 40-136 U/L Lactate Dehydrogenase 230 H 252 H 125-220 U/L Total Protein 6.1 L 5.3 L 6.4-8.2 GM/DL Albumin 3.3 2.9 L 3.2-4.5 GM/DL Patient's hemoglobin is stable her platelet count has dropped notably. LDH is risen just a bit. Liver enzymes are normal. White blood cell count did come down some. The abdomen is benign. Extremities show no clubbing or cyanosis. Pelvic exam shows cervix now 5 cm dilated 60-70 percent effaced -1 station vertex presentation with intact membranes. Amniotomy is performed releasing clear fluid. Assessment and plan hospital day 237 and now 3/7 weeks gestation with preeclampsia that appears to be developing help syndrome. We'll plan to start magnesium if her blood pressures remained persistently elevated. We will effect more prompt delivery if her blood pressures reached the level of 160/110 persistently. If she fails to make adequate progress in labor however proceeding with delivery due to terminate the . We will plan to repeat the lab work this afternoon. September 21, 2018 Patient without complaint. She is ambulating, tolerating oral intake well, has good pain control. Patient denies chest pain, denies shortness of breath, denies nausea vomiting, and denies headache. Patient has not voided since her Wagoner catheter removed this morning Vital Signs Date Time Temp Pulse Resp B/P (MAP) Pulse Ox O2 Delivery O2 Flow Rate FiO2 09/21/18 06:45 98.3 81 18 111/58 (75) Room Air 09/21/18 05:45 98.3 75 18 106/53 (70) Room Air 09/21/18 04:45 98.0 85 18 117/69 (85) Room Air 09/21/18 03:45 98.0 84 18 128/71 (90) Room Air 09/21/18 02:45 98.0 85 18 122/71 (88) Room Air 09/21/18 01:45 98.0 93 18 120/68 (85) Room Air 09/21/18 00:45 98.3 81 18 120/60 (80) Room Air 09/20/18 23:45 98.3 98 18 118/60 (79) Room Air 09/20/18 22:45 99.2 93 18 128/75 (92) Room Air 09/20/18 21:45 99.5 95 18 132/72 (92) Room Air 09/20/18 20:45 99.3 116 18 144/96 (112) Room Air 09/20/18 19:45 98.8 91 18 136/90 (105) Room Air 09/20/18 18:45 98.5 94 18 127/73 (91) Room Air 09/20/18 17:45 80 16 125/76 (92) Room Air 09/20/18 17:00 98.1 92 16 134/74 (94) Room Air 09/20/18 16:15 88 16 144/78 (100) Room Air 09/20/18 15:45 97.8 96 16 132/77 (95) Room Air 09/20/18 15:30 97.0 100 16 138/81 (100) Room Air 09/20/18 15:15 98.7 102 18 141/70 (93) Room Air 09/20/18 15:00 98.6 113 18 155/88 (110) Room Air 09/20/18 14:52 113 18 143/78 (99) 09/20/18 14:25 98.0 120 18 143/74 (97) 99 Room Air 09/20/18 14:15 120 18 137/82 (100) 99 Room Air 09/20/18 14:00 86 18 130/83 (99) 99 Room Air 09/20/18 13:45 09/20/18 13:30 79 18 127/80 (96) 100 Room Air 09/20/18 13:15 18 Room Air 09/20/18 13:00 88 18 152/67 (95) 98 Room Air 09/20/18 12:55 76 18 128/77 (94) 99 Room Air 09/20/18 12:50 92 18 134/84 (101) 99 Room Air 09/20/18 12:45 88 18 132/80 (97) 98 Room Air 09/20/18 12:40 86 18 132/67 (88) 100 Room Air 09/20/18 12:35 86 18 130/84 (99) 100 Room Air 09/20/18 12:30 97.2 83 18 131/77 (95) 98 Room Air 09/20/18 12:27 81 18 129/76 (93) 98 Room Air 09/20/18 12:22 83 18 130/80 (97) 96 Room Air 09/20/18 12:18 78 18 135/70 (91) 98 Room Air 09/20/18 12:15 83 18 138/72 (94) 98 Room Air 09/20/18 12:05 87 18 163/74 (103) 98 Room Air 09/20/18 12:00 81 18 163/87 (112) 98 Room Air 09/20/18 11:45 62 18 165/82 (109) 100 Room Air 09/20/18 11:30 96 18 98 Room Air 09/20/18 11:15 70 16 154/77 (102) Room Air 09/20/18 11:00 94 16 167/84 (111) Room Air 09/20/18 10:45 68 16 161/85 (110) Room Air 09/20/18 10:30 90 16 165/72 (103) Room Air 09/20/18 10:15 66 16 134/63 (86) Room Air 09/20/18 10:00 81 16 139/81 (100) Room Air 09/20/18 09:45 78 16 137/85 (102) Room Air 09/20/18 09:30 75 16 135/84 (101) Room Air 09/20/18 09:15 98.1 Room Air 09/20/18 09:00 64 16 134/79 (97) Room Air 09/20/18 08:45 16 131/77 (95) Room Air 09/20/18 08:30 75 16 142/90 (107) Room Air 09/20/18 08:15 63 16 139/90 (106) Room Air 09/20/18 08:00 74 18 136/87 (103) Room Air I & O 09/21/18 07:00 Intake Total 6345 ml Output Total 3000 ml Balance 3345 ml Vital signs are stable. Patient is afebrile. Her blood pressures are normalizing. Her urine output is more than adequate. Platelet count is relatively stable hemoglobin is stable and normal liver enzymes are normal LDH is stable Laboratory Tests Test 09/20/18 14:50 09/21/18 05:53 Range/Units White Blood Count 15.8 H 13.0 H 4.3-11.0 10^3/uL Red Blood Count 4.20 L 3.28 L 4.35-5.85 10^6/uL Hemoglobin 13.2 # 10.3 #L 11.5-16.0 G/DL Hematocrit 39 31 L 35-52 % Mean Corpuscular Volume 93 94 80-99 FL Mean Corpuscular Hemoglobin 31 31 25-34 PG Mean Corpuscular Hemoglobin Concent 34 34 32-36 G/DL Red Cell Distribution Width 12.7 12.7 10.0-14.5 % Platelet Count 213 192 130-400 10^3/uL Mean Platelet Volume 10.6 H 10.7 H 7.4-10.4 FL Neutrophils (%) (Auto) 75 70 42-75 % Lymphocytes (%) (Auto) 16 20 12-44 % Monocytes (%) (Auto) 8 9 0-12 % Eosinophils (%) (Auto) 0 1 0-10 % Basophils (%) (Auto) 0 0 0-10 % Neutrophils # (Auto) 11.8 H 9.1 H 1.8-7.8 X 10^3 Lymphocytes # (Auto) 2.6 2.6 1.0-4.0 X 10^3 Monocytes # (Auto) 1.3 H 1.2 H 0.0-1.0 X 10^3 Eosinophils # (Auto) 0.1 0.2 0.0-0.3 10^3/uL Basophils # (Auto) 0.0 0.0 0.0-0.1 10^3/uL Sodium Level 143 137 135-145 MMOL/L Potassium Level 3.4 L 3.7 3.6-5.0 MMOL/L Chloride Level 107 107 98-107 MMOL/L Carbon Dioxide Level 20 L 23 21-32 MMOL/L Anion Gap 16 H 7 5-14 MMOL/L Blood Urea Nitrogen 7 5 L 7-18 MG/DL Creatinine 0.74 0.60 0.60-1.30 MG/DL Estimat Glomerular Filtration Rate > 60 > 60 BUN/Creatinine Ratio 9 8 Glucose Level 91 87 70-105 MG/DL Calcium Level 9.9 7.3 L 8.5-10.1 MG/DL Corrected Calcium 10.2 H 8.4 L 8.5-10.1 MG/DL Total Bilirubin 0.3 0.2 0.1-1.0 MG/DL Aspartate Amino Transf (AST/SGOT) 33 26 5-34 U/L Alanine Aminotransferase (ALT/SGPT) 21 13 0-55 U/L Alkaline Phosphatase 251 H 185 H 40-136 U/L Total Protein 6.9 4.8 L 6.4-8.2 GM/DL Albumin 3.6 2.6 L 3.2-4.5 GM/DL Lactate Dehydrogenase 297 H 125-220 U/L Physical exam Abdomen is soft nontender nondistended. The fundus is firm below the umbilicus and nontender. Extremities show no clubbing cyanosis. There is no Homans sign. There is some pretibial pitting edema that is normal. Assessment and plan day number 1 status post term spontaneous vaginal delivery at 37-7 weeks gestation with severe preeclampsia/early help syndrome that is resolving. Plan is for routine convalescence care with close attention to blood pressures and vitals through the day. Likely will consider discharge home tomorrow. ONEAL OCHOA MD Sep 21, 2018 07:54
[2018-09-21] MEDS ORDERED: ceFAZolin INJECTION 1,000 MG in WATER (STERILE) FOR INJECTION 10 ML IV SCH (08:00)
--- NOTE | 2018-09-21 08:11 | NUR ---
AM shift assessment completed and vital signs obtained, see interventions. Plan of care reviewed with patient. Patient verbalizes understanding. Scheduled Colace PO and ANCEF IV given at this time. TDAP vaccine administered, see EMAR. VIS sheet provided to patient. Shower supplies and fresh water provided. Patient denies any further questions or concerns at this time.
[2018-09-21] MEDS: DOCUSATE SODIUM 100 MG (COLACE) CAP PO SCH ×2 (08:16→23:08)
--- NOTE | 2018-09-21 10:35 | Anesthesia-Regional Post-Op ---
Regional Patient Condition Mental Status: Alert, Oriented x3 Circulation: Same as Pre-Op Headache: Absent Sensation: Full Recovery Motor Block: Absent Post Op Complications Complications None Follow Up Care/Instructions Patient Instructions None needed. Anesthesia/Patient Condition Patient is doing well, no complaints, stable vital signs, no apparent adverse anesthesia problems. No complications reported per nursing. FLAVIA REDDY CRNA Sep 21, 2018 10:35
[2018-09-21] MEDS: IBUPROFEN 800 MG (MOTRIN) TAB PO SCH ×3 (11:49→23:08)
--- NOTE | 2018-09-21 19:20 | NUR ---
Report to Miranda Cotto RN.
[2018-09-22] MEDS: oxyCODONE/APAP 5/325MG (PERCOCET 5) TABLET PO PRN (06:10)
[2018-09-22] MEDS: IBUPROFEN 800 MG (MOTRIN) TAB PO SCH ×2 (06:10→12:40)
--- NOTE | 2018-09-22 07:51 | Progress Note-Standard ---
Standard Progress Note Progress Notes/Assess & Plan Date Seen by a Provider: Sep 22, 2018 Time Seen by a Provider: 07:49 Progress/Assessment & Plan This patient is without complaint. Her dental pain is controlled with Percocet. She is feeling occasional contractions. Pitocin is now on 16. She denies rupture membranes or bleeding. Her blood pressures have been labile occasionally touch in the 160s over 90s. heart rate looks good on the monitor. She continues on her Ancef. Vital Signs Date Time Temp Pulse Resp B/P (MAP) Pulse Ox O2 Delivery O2 Flow Rate FiO2 09/20/18 08:45 16 131/77 (95) Room Air 09/20/18 08:30 75 16 142/90 (107) Room Air 09/20/18 08:15 63 16 139/90 (106) Room Air 09/20/18 08:00 74 18 136/87 (103) Room Air 09/20/18 07:45 74 18 136/88 (104) Room Air 09/20/18 07:30 73 18 161/93 (115) Room Air 09/20/18 07:15 97.9 58 18 126/65 (85) Room Air 09/20/18 06:50 98.8 65 18 109/56 (73) Room Air 09/20/18 06:35 61 18 118/63 (81) Room Air 09/20/18 05:55 68 18 128/62 (84) Room Air 09/20/18 05:25 78 18 135/64 (87) Room Air 09/20/18 04:55 77 18 152/89 (110) Room Air 09/20/18 04:25 66 18 139/67 (91) Room Air 09/20/18 03:55 78 18 142/89 (106) Room Air 09/20/18 03:25 60 18 118/67 (84) Room Air 09/20/18 02:55 67 18 134/77 (96) Room Air 09/20/18 02:25 98.8 88 18 133/80 (97) Room Air 09/20/18 01:55 74 18 140/69 (92) Room Air 09/20/18 01:25 66 18 129/60 (83) Room Air 09/20/18 00:55 64 18 141/77 (98) Room Air 09/20/18 00:25 63 18 132/78 (96) Room Air 09/19/18 23:55 97.0 62 18 109/60 (76) Room Air 09/19/18 23:25 66 18 128/73 (91) Room Air 09/19/18 22:55 69 18 125/62 (83) Room Air 09/19/18 22:25 81 18 123/58 (79) Room Air 09/19/18 21:55 86 18 143/87 (105) Room Air 09/19/18 21:25 82 18 138/84 (102) Room Air 09/19/18 20:55 88 18 132/75 (94) Room Air 09/19/18 20:25 75 18 155/89 (111) Room Air 09/19/18 19:55 81 18 139/86 (103) Room Air 09/19/18 19:15 75 18 145/83 (103) Room Air 09/19/18 18:17 75 18 138/78 (98) Room Air 09/19/18 18:02 69 18 136/84 (101) Room Air 09/19/18 17:47 86 18 139/87 (104) Room Air 09/19/18 17:32 81 18 136/87 (103) Room Air 09/19/18 17:17 98.5 75 18 135/88 (104) 98 Room Air Blood pressures noted Laboratory Tests Test 09/19/18 17:15 09/19/18 17:44 09/20/18 06:55 Range/Units Urine Protein 16 H 6-12 MG/DL Urine Creatinine 70 30-125 MG/DL Urine Protein/Creatinine Ratio 0.23 White Blood Count 15.2 H 12.9 H 4.3-11.0 10^3/uL Red Blood Count 3.64 L 3.36 L 4.35-5.85 10^6/uL Hemoglobin 11.7 10.7 L 11.5-16.0 G/DL Hematocrit 33 L 31 L 35-52 % Mean Corpuscular Volume 91 93 80-99 FL Mean Corpuscular Hemoglobin 32 32 25-34 PG Mean Corpuscular Hemoglobin Concent 36 34 32-36 G/DL Red Cell Distribution Width 12.9 13.0 10.0-14.5 % Platelet Count 208 166 130-400 10^3/uL Mean Platelet Volume 10.5 H 10.8 H 7.4-10.4 FL Neutrophils (%) (Auto) 82 H 74 42-75 % Lymphocytes (%) (Auto) 11 L 15 12-44 % Monocytes (%) (Auto) 7 10 0-12 % Eosinophils (%) (Auto) 0 1 0-10 % Basophils (%) (Auto) 0 0 0-10 % Neutrophils # (Auto) 12.4 H 9.6 H 1.8-7.8 X 10^3 Lymphocytes # (Auto) 1.6 2.0 1.0-4.0 X 10^3 Monocytes # (Auto) 1.1 H 1.2 H 0.0-1.0 X 10^3 Eosinophils # (Auto) 0.1 0.1 0.0-0.3 10^3/uL Basophils # (Auto) 0.0 0.0 0.0-0.1 10^3/uL Neutrophils % (Manual) 82 % Lymphocytes % (Manual) 12 % Monocytes % (Manual) 4 % Eosinophils % (Manual) 1 % Band Neutrophils 1 % Blood Morphology Comment NORMAL Sodium Level 136 137 135-145 MMOL/L Potassium Level 3.9 3.9 3.6-5.0 MMOL/L Chloride Level 106 107 98-107 MMOL/L Carbon Dioxide Level 20 L 23 21-32 MMOL/L Anion Gap 10 7 5-14 MMOL/L Blood Urea Nitrogen 10 8 7-18 MG/DL Creatinine 0.60 0.63 0.60-1.30 MG/DL Estimat Glomerular Filtration Rate > 60 > 60 BUN/Creatinine Ratio 17 13 Glucose Level 95 87 70-105 MG/DL Uric Acid 5.5 2.6-7.2 MG/DL Calcium Level 9.8 8.9 8.5-10.1 MG/DL Corrected Calcium 10.4 H 9.8 8.5-10.1 MG/DL Total Bilirubin 0.2 0.3 0.1-1.0 MG/DL Aspartate Amino Transf (AST/SGOT) 27 23 5-34 U/L Alanine Aminotransferase (ALT/SGPT) 20 17 0-55 U/L Alkaline Phosphatase 225 H 199 H 40-136 U/L Lactate Dehydrogenase 230 H 252 H 125-220 U/L Total Protein 6.1 L 5.3 L 6.4-8.2 GM/DL Albumin 3.3 2.9 L 3.2-4.5 GM/DL Patient's hemoglobin is stable her platelet count has dropped notably. LDH is risen just a bit. Liver enzymes are normal. White blood cell count did come down some. The abdomen is benign. Extremities show no clubbing or cyanosis. Pelvic exam shows cervix now 5 cm dilated 60-70 percent effaced -1 station vertex presentation with intact membranes. Amniotomy is performed releasing clear fluid. Assessment and plan hospital day 237 and now 3/7 weeks gestation with preeclampsia that appears to be developing help syndrome. We'll plan to start magnesium if her blood pressures remained persistently elevated. We will effect more prompt delivery if her blood pressures reached the level of 160/110 persistently. If she fails to make adequate progress in labor however proceeding with delivery due to terminate the . We will plan to repeat the lab work this afternoon. September 21, 2018 Patient without complaint. She is ambulating, tolerating oral intake well, has good pain control. Patient denies chest pain, denies shortness of breath, denies nausea vomiting, and denies headache. Patient has not voided since her Wagoner catheter removed this morning Vital Signs Date Time Temp Pulse Resp B/P (MAP) Pulse Ox O2 Delivery O2 Flow Rate FiO2 09/21/18 06:45 98.3 81 18 111/58 (75) Room Air 09/21/18 05:45 98.3 75 18 106/53 (70) Room Air 09/21/18 04:45 98.0 85 18 117/69 (85) Room Air 09/21/18 03:45 98.0 84 18 128/71 (90) Room Air 09/21/18 02:45 98.0 85 18 122/71 (88) Room Air 09/21/18 01:45 98.0 93 18 120/68 (85) Room Air 09/21/18 00:45 98.3 81 18 120/60 (80) Room Air 09/20/18 23:45 98.3 98 18 118/60 (79) Room Air 09/20/18 22:45 99.2 93 18 128/75 (92) Room Air 09/20/18 21:45 99.5 95 18 132/72 (92) Room Air 09/20/18 20:45 99.3 116 18 144/96 (112) Room Air 09/20/18 19:45 98.8 91 18 136/90 (105) Room Air 09/20/18 18:45 98.5 94 18 127/73 (91) Room Air 09/20/18 17:45 80 16 125/76 (92) Room Air 09/20/18 17:00 98.1 92 16 134/74 (94) Room Air 09/20/18 16:15 88 16 144/78 (100) Room Air 09/20/18 15:45 97.8 96 16 132/77 (95) Room Air 09/20/18 15:30 97.0 100 16 138/81 (100) Room Air 09/20/18 15:15 98.7 102 18 141/70 (93) Room Air 09/20/18 15:00 98.6 113 18 155/88 (110) Room Air 09/20/18 14:52 113 18 143/78 (99) 09/20/18 14:25 98.0 120 18 143/74 (97) 99 Room Air 09/20/18 14:15 120 18 137/82 (100) 99 Room Air 09/20/18 14:00 86 18 130/83 (99) 99 Room Air 09/20/18 13:45 09/20/18 13:30 79 18 127/80 (96) 100 Room Air 09/20/18 13:15 18 Room Air 09/20/18 13:00 88 18 152/67 (95) 98 Room Air 09/20/18 12:55 76 18 128/77 (94) 99 Room Air 09/20/18 12:50 92 18 134/84 (101) 99 Room Air 09/20/18 12:45 88 18 132/80 (97) 98 Room Air 09/20/18 12:40 86 18 132/67 (88) 100 Room Air 09/20/18 12:35 86 18 130/84 (99) 100 Room Air 09/20/18 12:30 97.2 83 18 131/77 (95) 98 Room Air 09/20/18 12:27 81 18 129/76 (93) 98 Room Air 09/20/18 12:22 83 18 130/80 (97) 96 Room Air 09/20/18 12:18 78 18 135/70 (91) 98 Room Air 09/20/18 12:15 83 18 138/72 (94) 98 Room Air 09/20/18 12:05 87 18 163/74 (103) 98 Room Air 09/20/18 12:00 81 18 163/87 (112) 98 Room Air 09/20/18 11:45 62 18 165/82 (109) 100 Room Air 09/20/18 11:30 96 18 98 Room Air 09/20/18 11:15 70 16 154/77 (102) Room Air 09/20/18 11:00 94 16 167/84 (111) Room Air 09/20/18 10:45 68 16 161/85 (110) Room Air 09/20/18 10:30 90 16 165/72 (103) Room Air 09/20/18 10:15 66 16 134/63 (86) Room Air 09/20/18 10:00 81 16 139/81 (100) Room Air 09/20/18 09:45 78 16 137/85 (102) Room Air 09/20/18 09:30 75 16 135/84 (101) Room Air 09/20/18 09:15 98.1 Room Air 09/20/18 09:00 64 16 134/79 (97) Room Air 09/20/18 08:45 16 131/77 (95) Room Air 09/20/18 08:30 75 16 142/90 (107) Room Air 09/20/18 08:15 63 16 139/90 (106) Room Air 09/20/18 08:00 74 18 136/87 (103) Room Air I & O 09/21/18 07:00 Intake Total 6345 ml Output Total 3000 ml Balance 3345 ml Vital signs are stable. Patient is afebrile. Her blood pressures are normalizing. Her urine output is more than adequate. Platelet count is relatively stable hemoglobin is stable and normal liver enzymes are normal LDH is stable Laboratory Tests Test 09/20/18 14:50 09/21/18 05:53 Range/Units White Blood Count 15.8 H 13.0 H 4.3-11.0 10^3/uL Red Blood Count 4.20 L 3.28 L 4.35-5.85 10^6/uL Hemoglobin 13.2 # 10.3 #L 11.5-16.0 G/DL Hematocrit 39 31 L 35-52 % Mean Corpuscular Volume 93 94 80-99 FL Mean Corpuscular Hemoglobin 31 31 25-34 PG Mean Corpuscular Hemoglobin Concent 34 34 32-36 G/DL Red Cell Distribution Width 12.7 12.7 10.0-14.5 % Platelet Count 213 192 130-400 10^3/uL Mean Platelet Volume 10.6 H 10.7 H 7.4-10.4 FL Neutrophils (%) (Auto) 75 70 42-75 % Lymphocytes (%) (Auto) 16 20 12-44 % Monocytes (%) (Auto) 8 9 0-12 % Eosinophils (%) (Auto) 0 1 0-10 % Basophils (%) (Auto) 0 0 0-10 % Neutrophils # (Auto) 11.8 H 9.1 H 1.8-7.8 X 10^3 Lymphocytes # (Auto) 2.6 2.6 1.0-4.0 X 10^3 Monocytes # (Auto) 1.3 H 1.2 H 0.0-1.0 X 10^3 Eosinophils # (Auto) 0.1 0.2 0.0-0.3 10^3/uL Basophils # (Auto) 0.0 0.0 0.0-0.1 10^3/uL Sodium Level 143 137 135-145 MMOL/L Potassium Level 3.4 L 3.7 3.6-5.0 MMOL/L Chloride Level 107 107 98-107 MMOL/L Carbon Dioxide Level 20 L 23 21-32 MMOL/L Anion Gap 16 H 7 5-14 MMOL/L Blood Urea Nitrogen 7 5 L 7-18 MG/DL Creatinine 0.74 0.60 0.60-1.30 MG/DL Estimat Glomerular Filtration Rate > 60 > 60 BUN/Creatinine Ratio 9 8 Glucose Level 91 87 70-105 MG/DL Calcium Level 9.9 7.3 L 8.5-10.1 MG/DL Corrected Calcium 10.2 H 8.4 L 8.5-10.1 MG/DL Total Bilirubin 0.3 0.2 0.1-1.0 MG/DL Aspartate Amino Transf (AST/SGOT) 33 26 5-34 U/L Alanine Aminotransferase (ALT/SGPT) 21 13 0-55 U/L Alkaline Phosphatase 251 H 185 H 40-136 U/L Total Protein 6.9 4.8 L 6.4-8.2 GM/DL Albumin 3.6 2.6 L 3.2-4.5 GM/DL Lactate Dehydrogenase 297 H 125-220 U/L Physical exam Abdomen is soft nontender nondistended. The fundus is firm below the umbilicus and nontender. Extremities show no clubbing cyanosis. There is no Homans sign. There is some pretibial pitting edema that is normal. Assessment and plan day number 1 status post term spontaneous vaginal delivery at 37-7 weeks gestation with severe preeclampsia/early help syndrome that is resolving. Plan is for routine convalescence care with close attention to blood pressures and vitals through the day. Likely will consider discharge home tomorrow. September 22, 2018 Patient without complaint. He is ambulating, voiding, tolerating oral intake well has good pain control. Patient denies chest pain, denies shortness of breath, denies nausea vomiting, and denies headache. Vital Signs Date Time Temp Pulse Resp B/P (MAP) Pulse Ox O2 Delivery O2 Flow Rate FiO2 09/21/18 23:08 98.8 63 20 148/87 (107) 98 09/21/18 17:00 97.6 77 20 134/78 (96) 97 09/21/18 11:49 98.1 85 16 132/64 (86) 98 Room Air I & O 09/22/18 07:00 Intake Total 10 ml Balance 10 ml Vital signs are stable. Patient is afebrile. Fundus is firm below the umbilicus and nontender. Extreme show no clubbing or cyanosis. There is no Homans sign. There is minimal pretibial pitting edema. Assessment and plan day number 2 status post 37-2/7 weeks' gestation in spontaneous vaginal delivery. Patient has severe preeclampsia was developing help syndrome. That appears to be resolving. Patient is stable and we allowed discharge home with follow-up in clinic Final Diagnosis 37-2/7 weeks' gestation in spontaneous vaginal delivery ONEAL OCHOA MD Sep 22, 2018 07:51
--- NOTE | 2018-09-22 07:56 | Discharge Summary ---
Discharge Summary 37-2/7 weeks spontaneous vaginal delivery This patient is a 22-year-old G1 white female who time of admission. She is 37- 7 weeks gestation admitted for severe preeclampsia with developing help syndrome. She also had a dental abscess. She is noted to have been in spontaneous labor she was admitted on the evening of September 19 AT 2 cm 30 percent and by the morning of she was 4 cm plus at over 50 percent effaced. She was augmented with Pitocin and subsequently had a term spontaneous vaginal delivery on September 20, 2018. Her blood pressures had been significantly elevated her platelet count was decreasing her LDH was increasing. This was consistent with developing preeclampsia/help syndrome. After delivery she was maintained on magnesium until the morning of 09/21/18. By that time her lab work is stable her improving her blood pressures were resolving and her magnesium was continued. On 35 now she is ambulating, voiding, tolerating oral intake well has good pain control. It does appear that her pre-eclampsia is resolving. Principal diagnoses this hospitalization is term spontaneous vaginal delivery at 37-7 weeks gestation Secondary diagnoses are spontaneous labor, severe preeclampsia, developing help syndrome Operation procedures include IV fluids, IV antibiotics, IV Pitocin, labor epidural, spontaneous vaginal delivery Patient was given appropriate discharge instructions verbally and writing area discharge medications are Percocet and Motrin and Colace. Patient is to continue taking amoxicillin 500 mg 3 times a day at which she was prescribed via the emergency department prior to admission and she is to follow-up with dentistry Clinical Quality Measures DVT/VTE Risk/Contraindication: Risk Factor Score Per Nursin RFS Level Per Nursing on Admit: 1=Low/No VTE PPX ONEAL OCHOA MD Sep 22, 2018 07:56
[2018-09-22 08:48] VITALS: BP 116/59
[2018-09-22] MEDS: DOCUSATE SODIUM 100 MG (COLACE) CAP PO SCH (08:48)
--- NOTE | 2018-09-22 08:48 | NUR ---
AM shift assessment completed and vital signs obtained, see interventions. Plan of care reviewed with patient. Patient verbalizes understanding and questions answered. Scheduled Colace PO given. Dermoplast spray provided.
--- NOTE | 2018-09-22 12:37 | NUR ---
Discharge instructions reviewed with patient both written and verbally. Patient verbalizes understanding and questions answered. Written Prescription for Percocet given to patient. Other prescriptions called to [facility].
--- NOTE | 2018-09-22 12:40 | NUR ---
Scheduled Motrin PO given.
--- NOTE | 2018-09-22 13:25 | NUR ---
Patient discharged at this time and accompanied down to awaiting private vehicle by Eron Valentine RN. No signs or symptoms of distress noted.
== END 2018-09-22 13:25 | disposition home or self-care (01) | DRG 807 ==
LOC: WSo 16:56 → LDRP 16:56 → WSo 18:37 → LDRP 18:37 → OBSVTOIN 18:37 → LDRP 21:16
PROVIDERS: ADMIT Obstetrics & Gynecology; ATTEND Obstetrics & Gynecology
PROC: 10E0XZZ Delivery of Products of Conception, External Approach (ICD-10-PCS; principal; 2018-09-20)
PROC: 0UQMXZZ Repair Vulva, External Approach (ICD-10-PCS; 2018-09-20)
DX: O14.13 Severe pre-eclampsia, third trimester (principal); O71.82 Other specified trauma to perineum and vulva; O99.613 Diseases of the digestive system complicating pregnancy, third trimester; K04.7 Periapical abscess without sinus; Z3A.37 37 weeks gestation of pregnancy; Z37.0 Single live birth
CPT/HCPCS: 36415; 80053; 82570; 83615; 84156; 84550; 85007; 85025; 85027; 86850; 86900; 86901; 90715; 99212; G0378